=== PATIENT | female | born 2000 | race Caucasian/White ===

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

== ENCOUNTER 2024-08-05 01:29 | Emergency (ER) | payer OTHER ==
[2024-08-05 01:39] VITALS: TEMP 98.6
--- NOTE | 2024-08-05 01:50 | ED ---
General Adult HPI - General Chief complaint: Chest Pain Stated complaint: Throat pain, body pain Time Seen by Provider: 08/05/24 01:43 Source: patient, RN notes reviewed Mode of arrival: ambulatory - History of Present Illness Initial comments: This is a 24-year-old female with a history of asthma presenting to the emergency department for chief complaint of flulike symptoms over the past week. States that she has been experiencing severe body aches, dry cough, congestion, chills. States that she is experiencing a tightness in her chest with radiation to the back that is exacerbated with coughing that is worse in the past 2 days due to her having multiple episodes of coughing. States that due to coughing she will feel intermittently short of breath. She denies history of DVT/PE, recent prolonged travel, recent surgeries, family history of clotting disorders. She denies heart palpitations, dizziness, lightheadedness. Endorses sore throat. - Related Data Previous Rx's Medication Instructions Recorded Albuterol Inhaler [Ventolin Hfa 1 - 2 puff INHALATION Q6H PRN #1 08/05/24 Inhaler] each Albuterol Nebulized [Ventolin 2.5 mg INHALATION Q4H PRN #75 ml 08/05/24 Nebulized] Allergies Allergy/AdvReac Type Severity Reaction Status Date / Time erythromycin base Allergy Rash/Hives Verified 01/19/21 11:11 guaifenesin [From Mucinex] Allergy Rash/Hives Verified 01/19/21 11:11 Review of Systems ROS Statement: Those systems with pertinent positive or pertinent negative responses have been documented in the HPI. ROS Other: All systems not noted in ROS Statement are negative. Past Medical History Past Medical History: Asthma, Seizure Disorder Additional Past Medical History / Comment(s): seasonal allergies, LAST SEIZURE WAS OCTOBER 2020, MIGRAINE HEADACHE , SEE DR PATEL'S HISTORY AND PHYSICAL FOR CARDIAC HISTORY History of Any Multi-Drug Resistant Organisms: None Reported Past Surgical History: Adenoidectomy, Appendectomy, Tonsillectomy Additional Past Surgical History / Comment(s): EYE SURGERY-CORRECTION OF LAZY EYE bilaterally 2013 Past Anesthesia/Blood Transfusion Reactions: No Reported Reaction Past Psychological History: Anxiety, Depression Smoking Status: Never smoker - Past Family History Brother(s) Additional Family Medical History / Comment(s): seasonal allergies Mother Family Medical History: No Reported History General Exam General appearance: alert, in no apparent distress Eye exam: Present: normal appearance, PERRL, EOMI. Absent: scleral icterus, conjunctival injection, periorbital swelling ENT exam: Present: normal exam, mucous membranes moist Respiratory exam: Present: normal lung sounds bilaterally. Absent: respiratory distress, wheezes, rales, rhonchi, stridor Cardiovascular Exam: Present: regular rate, normal rhythm, normal heart sounds. Absent: systolic murmur, diastolic murmur, rubs, gallop, clicks GI/Abdominal exam: Present: soft, normal bowel sounds. Absent: distended, tenderness, guarding, rebound, rigid Extremities exam: Present: normal inspection, full ROM, normal capillary refill. Absent: tenderness, pedal edema, joint swelling, calf tenderness Back exam: Present: normal inspection Course Vital Signs 08/05/24 08/05/24 08/05/24 01:33 01:59 03:20 Temperature 98.6 F Pulse Rate 84 70 Respiratory 18 16 16 Rate Blood Pressure 100/63 102/73 O2 Sat by Pulse 99 97 Oximetry Medical Decision Making - Medical Decision Making Was pt. sent in by a medical professional or institution (, PA, BORING MACHINE SET UP OPERATOR JIG, urgent care, hospital, or fci...) When possible be specific @ -No Did you speak to anyone other than the patient for history (EMS, parent, family, police, friend...)? What history was obtained from this source @ -No Did you review nursing and triage notes (agree or disagree)? Why? @ -I reviewed and agree with nursing and triage notes Were old charts reviewed (outside hosp., previous admission, EMS record, old EKG, old radiological studies, urgent care reports/EKG's, fci records)? Report findings @ -No old charts were reviewed Differential Diagnosis (chest pain, altered mental status, abdominal pain women, abdominal pain men, vaginal bleeding, weakness, fever, dyspnea, syncope, headache, dizziness, GI bleed, back pain, seizure, CVA, palpatations, mental health, musculoskeletal)? @ -COVID 19, RSV, influenza, pneumonia, acute bronchitis, URI, this list is not all inclusive EKG interpreted by me (3pts min.). @ -Completed at 0203 sinus rhythm with a ventricular to 75, parable 145, QRS 81, QTc 401 X-rays interpreted by me (1pt min.). @ -Chest x-ray reveals mild basilar opacities with no focal consolidation. CT interpreted by me (1pt min.). @ -None done U/S interpreted by me (1pt. min.). @ -None done What testing was considered but not performed or refused? (CT, X-rays, U/S, labs)? Why? @ -None What meds were considered but not given or refused? Why? @ -None Did you discuss the management of the patient with other professionals (professionals i.e. , PA, BORING MACHINE SET UP OPERATOR JIG, lab, RT, psych nurse, manager social, state game protector, teacher, chief business development officer, case assembler)? Give summary @ -No Was smoking cessation discussed for >3mins.? @ -No Was critical care preformed (if so, how long)? @ -No Were there social determinants of health that impacted care today? How? (Homelessness, low income, unemployed, alcoholism, drug addiction, transportation, low edu. Level, literacy, decrease access to med. care, assisted, rehab)? @ -No Was there de-escalation of care discussed even if they declined (Discuss DNR or withdrawal of care, Hospice)? DNR status @ -No What co-morbidities impacted this encounter? (DM, HTN, Smoking, COPD, CAD, Cancer, CVA, ARF, Chemo, Hep., AIDS, mental health diagnosis, sleep apnea, morbid obesity)? @ -None Was patient admitted / discharged? Hospital course, mention meds given and route, prescriptions, significant lab abnormalities, going to OR and other pertinent info. @ -Discharge. 24-year-old female presenting with flulike symptoms. There is minimal clinical concern for ACS as patient symptoms are related to upper respiratory infection symptoms. PERC negative therefore laboratory studies and I ordered a D-dimer is negated. EKG sinus rhythm. Chest x-ray unremarkable. Patient has tested positive for influenza A. Recommend that she continue supportive treatment at home such as using Tylenol Motrin as needed and increase hydration via fluids. Discussed with Dr. Reese Undiagnosed new problem with uncertain prognosis? @ -No Drug Therapy requiring intensive monitoring for toxicity (Heparin, Nitro, Insulin, Cardizem)? @ -No Were any procedures done? @ -No Diagnosis/symptom? @ -Influenza A Acute, or Chronic, or Acute on Chronic? @ -Acute Uncomplicated (without systemic symptoms) or Complicated (systemic symptoms)? @ -Uncomplicated Side effects of treatment? @ -No Exacerbation, Progression, or Severe Exacerbation? @ -No Poses a threat to life or bodily function? How? (Chest pain, [place], [place], pneumonia, PE, COPD, DKA, ARF, appy, cholecystitis, CVA, Diverticulitis, Homicidal, Suicidal, threat to staff... and all critical care pts) @ -No - Lab Data Lab Results 08/05/24 08/05/24 Range/Units 01:59 01:59 Influenza Type A (PCR) Detected A (Not Detectd) Influenza Type B (PCR) Not Detected (Not Detectd) RSV (PCR) Not Detected (Not Detectd) SARS-CoV-2 (PCR) Not Detected (Not Detectd) Group A Strep (PCR) NOT DETECTED (Not Detectd) Disposition Clinical Impression: Influenza A Disposition: HOME SELF-CARE Condition: Good Instructions (If sedation given, give patient instructions): Influenza (ED) Additional Instructions: Please return to the Emergency Department if symptoms worsen or any other concerns. Prescriptions: Albuterol Inhaler [Ventolin Hfa Inhaler] 1 - 2 puff INHALATION Q6H PRN #1 each PRN Reason: Shortness Of Breath Albuterol Nebulized [Ventolin Nebulized] 2.5 mg INHALATION Q4H PRN #75 ml PRN Reason: difficulty in breathing Is patient prescribed a controlled substance at d/c from ED?: No Referrals: Irma Dumont MD [Primary Care Provider] - 1-2 days Time of Disposition: 03:14
[2024-08-05 02:02] VITALS: RESP 16
[2024-08-05] MEDS: ACETAMINOPHEN TAB 500 MG TAB PO STA (02:09)
[2024-08-05] MEDS: methylPREDNISolone SOD SUCCI 125 MG/2 ML VIAL IM ONE (02:10)
[2024-08-05 03:21] VITALS: BP 102/73; PULSE 70
--- NOTE | 2024-08-05 04:36 | XR ---
EXAM: XR Chest, 2 Views CLINICAL HISTORY: ITS.REASON XR Reason: cough, fever, SOB TECHNIQUE: Frontal and lateral views of the chest. COMPARISON: No relevant prior studies available. FINDINGS: Lungs: Mild bibasilar opacities Pleural space: No effusion. Heart: No cardiomegaly. Bones/joints: No acute findings. IMPRESSION: Mild bibasilar opacities
== END 2024-08-05 03:21 | disposition home or self-care (01) ==
LOC: EC 01:29
DX: J10.1 Influenza due to other identified influenza virus with other respiratory manifestations (principal); Z88.1 Allergy status to other antibiotic agents; Z88.8 Allergy status to other drugs, medicaments and biological substances
CPT/HCPCS: 93005; 87651; 87636; 71046; 99285; 96372; J2919